=== PATIENT | male | born 1965 | race Caucasian/White ===

== ENCOUNTER → 2017-02-21 | Outpatient (CLI) | payer MEDICARE ==
--- NOTE | 2017-02-21 19:50 | US ---
EXAMINATION TYPE: Ultrasound MSK RIGHT SHOULDER DATE OF EXAM: 02/21/2017 COMPARISON: None available CLINICAL HISTORY: 52-year-old male M25.511 Pain in right shoulder. Patient reports a swinging injury in August 2016 where he felt a pop. Pain worsening since. TECHNIQUE: Multiple sonographic images of the right shoulder are obtained. FINDINGS: Significant limitations in the exam due to pain and patient's limited ability to position. There is moderate synovial thickening along the extracapsular long head biceps tendon and fluid noted along the lower bicipital groove. The tendon itself appears intact. The majority of the subscapularis tendon appears intact. Mild degenerative spurring and capsular hypertrophy at the acromioclavicular joint. The supraspinatus tendon is mildly thickened. Along the anterior to mid fibers, there is focal area o f hypoechogenicity that extends to contact the bursal surface suggestive of a small 7 mm bursal sided tear. This measures approximately 1.1 cm AP. The infraspinatus tendon is intact. No atrophy of either supraspinatus or infraspinatus muscle bellies. Trace effusion within the subacromial/subdeltoid bursa. The posterior labrum appears degenerative and blunted. There is a small to moderate effusion seen in the posterior recess of the glenohumeral joint. To the extent seen, the spinoglenoid groove appears clear. Additional targeted scanning was performed at focal sites of patient's pain such as the lateral delto id. There is some hypoechoic appearance to the muscle fibers here of uncertain etiology. IMPRESSION: 1. Exam limitations due to patient pain. Supraspinatus tendinosis with suggestion of a 7 mm long and 11 mm AP bursal sided tear of the anterior to mid fibers. 2. Moderate soft tissue thickening along the bicipital groove suggests long head biceps tenosynovitis . There is also moderate fluid along the lower bicipital groove. The long head biceps tendon itself a ppears intact. 3. Degenerated and blunted posterior labrum with small to moderate glenohumeral joint effusion. 4. Targeted scanning at one of the sites of patient's pain localizes to the lateral deltoid. Muscle f ibers appear hypoechoic here. This could represent a site of contusion, prior tear, or muscle infarct . 5. If further imaging evaluation is desired, consider CT arthrogram.
== END | disposition home or self-care (01) ==
LOC: RADUSWWP 14:27
PROVIDERS: ATTEND Orthopaedic Surgery Sports Medicine
DX: M67.813 Other specified disorders of tendon, right shoulder (principal); M79.89 Other specified soft tissue disorders; M25.411 Effusion, right shoulder

== ENCOUNTER 2018-07-24 06:59 | Day surgery (SDC) | payer MEDICARE ==
[2018-07-21 08:59] VITALS: BMI 31.1
[~2018-07-24 06:59] MED LIST: LIDOCAINE 1% 20 ML VIAL (10MG/ML) FOR IV START INTRADERMA PRN
[2018-07-24 07:23] VITALS: TEMP 97.7
[2018-07-24] MEDS: LACTATED RINGERS 1,000 ML IV SCH ×2 (07:28→08:14)
[2018-07-24] MEDS ORDERED: PROPOFOL 10 MG/ML 20 ML VIAL IV ONE (08:19)
[2018-07-24] MEDS ORDERED: fentaNYL (PF) 50 MCG/ML 2 ML AMP ONE (08:19)
[2018-07-24] MEDS ORDERED: MIDAZOLAM 2 MG/2 ML VIAL ONE (08:19)
[2018-07-24] MEDS ORDERED: LIDOCAINE 1% INJ 10MG/ML (20 ML MDV) ONE (08:19)
--- NOTE | 2018-07-24 08:51 | P.PCN ---
Date of Procedure: 07/24/18 Procedure(s) Performed: Procedure: Colonoscopy and polypectomy. Preoperative diagnosis: Screening for neoplasia. Postoperative diagnosis: Distal sigmoid polyp snared but no large polyps or cancer. Preparation: HalfLytely prep. Sedation: Was provided by anesthesia. Brief clinical history: The patient is a 53-year-old male who is scheduled for this evaluation for screening for neoplasia age being his risk factor. He has no family history of colon cancer. No abdominal complaints, bleeding or anemia. This would be his first colonoscopy. Procedure: With the patient on his left lateral decubitus position and after informed consent and adequate sedation, the perianal area was inspected and it did not show any fissures or fistulas. There were no masses felt on digital rectal examination. The Olympus CFH 190L video colonoscope was then inserted in the rectum in the usual fashion and advanced to the cecum. There was a pedunculated polyp in the distal sigmoid measuring around 1.5 cm which was snared and retrieved by suctioning it to the tip of the endoscope and withdrawing the endoscope and re-starting the exam. The mucosa appeared healthy. There were no other polyps or tumors. No obvious diverticular disease or other pathology. I retroflexed the endoscope in the rectum before the en doscope was withdrawn. The patient tolerated the procedure well. Plan: The patient was reassured. Will await pathology results. I anticipate repeating this exam in 5 years. He will follow up with you as planned.
[2018-07-24 08:52] VITALS: RESP 16
[2018-07-24 09:06] VITALS: BP 142/81; PULSE 80
== END 2018-07-24 09:19 | disposition home or self-care (01) ==
LOC: ORWHC2ENDO 06:59
DX: Z12.11 Encounter for screening for malignant neoplasm of colon (principal); K51.40 Inflammatory polyps of colon without complications; I11.0 Hypertensive heart disease with heart failure; I50.9 Heart failure, unspecified; K21.9 Gastro-esophageal reflux disease without esophagitis; G47.33 Obstructive sleep apnea (adult) (pediatric); G89.29 Other chronic pain; F17.220 Nicotine dependence, chewing tobacco, uncomplicated; Z95.0 Presence of cardiac pacemaker; Z79.899 Other long term (current) drug therapy
CPT/HCPCS: 45385; J2250; J2001; J3010; J2704; 88305